=== PATIENT | male | born 1970 | race Caucasian/White ===

== ENCOUNTER 2017-06-13 17:39 | Emergency (ER) | payer OTHER ==
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
[2017-06-13] MEDS ORDERED: LIDOCAINE 5% (700 MG) TRANSDERMAL ADH..PATCH TP ONE (20:02)
[2017-06-13] MEDS ORDERED: NAPROXEN 250 MG TABLET PO ONE (20:02)
[2017-06-13] MEDS ORDERED: ACETAMINOPHEN 325 MG TABLET PO ONE (20:02)
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
[2017-06-13 20:29] VITALS: BP 145/103
== END 2017-06-13 20:29 | disposition home or self-care (01) ==
LOC: ER 17:39
DX: S49.92XA Unspecified injury of left shoulder and upper arm, initial encounter (principal); S89.92XA Unspecified injury of left lower leg, initial encounter; M25.562 Pain in left knee; V59.40XA Driver of pick-up truck or van injured in collision with unspecified motor vehicles in traffic accident, initial encounter; Z88.6 Allergy status to analgesic agent
CPT/HCPCS: 99283